=== PATIENT | female | born 1965 | race Caucasian/White ===

== ENCOUNTER 2022-01-25 22:33 | Emergency (ER) | payer MEDICAID ==
[~2022-01-25] VITALS: Ht 160 cm; Wt 97.5 kg
[2022-01-25 23:05] VITALS: BP 138/92
[2022-01-25 23:41] LABS: BASOPHILS # (AUTO) 0.1 K/uL (0.00-0.22); BASOPHILS % (AUTO) 0.5 % (0.0-2.0); EOSINOPHILS # (AUTO) 0.2 K/uL (0-0.4); HEMATOCRIT 40.2 % (36-48); HEMOGLOBIN 13.2 g/dL (12.0-16.0); LYMPHOCYTES # (AUTO) 3.1 K/uL (2.5-16.5); LYMPHOCYTES % (AUTO) 20.5 % (20.5-51.1); MEAN CORPUSCULAR HEMOGLOBIN 28 pg (27-31); MEAN CORPUSCULAR HGB CONC 33 g/dL (33-37); MEAN CORPUSCULAR VOLUME 85.6 fL (80-94); MONOCYTES # (AUTO) 0.8 K/uL (0.8-1.0); MONOCYTES % (AUTO) 5.4 % (1.7-9.3); NEUTROPHILS # (AUTO) 10.9 K/uL (1.8-7.7); NEUTROPHILS % (AUTO) 72.6 % (42.2-75.2); PLATELET COUNT (AUTO) 317 K/uL (140-450); RED BLOOD CELL COUNT(AUTO) 4.69 MIL/uL (4.20-5.40); RED CELL DISTRIBUTION WIDTH 14.3 % (11.6-13.7)
[2022-01-26 00:03] LABS: ALBUMIN 3.9 g/dL (3.4-5.0); ANION GAP 12.4 (8-16); CARBON DIOXIDE 29.1 mmol/L (21-32); CREATININE 0.7 mg/dL (0.6-1.3); POTASSIUM 4.5 mmol/L (3.5-5.1); TOTAL BILIRUBIN 0.4 mg/dL (0.0-1.0)
--- NOTE | 2022-01-26 01:20 | NUR ---
PT TAKEN TO BED 8
--- NOTE | 2022-01-26 02:00 | NUR ---
Patient being evaluated by physician at bedside.
--- NOTE | 2022-01-26 02:00 | NUR ---
Female Care Manager Cna accompanied female patient for Rectal Exam.
--- NOTE | 2022-01-26 02:15 | NUR ---
56/F BIB SELF C/C RECTAL BLEEDING X1DAY. PRESSURE PAIN IS 7/10. PATIENT HAS HX OF HEMORRHOIDS. PATIENT IS HAVING DIFFICULTY SITTING AND DEFECATING DUE TO PAIN. PATIENT IS AAOX4 AND AMBULATORY. PMHX DM, HTN, HEMORRHOIDS NKA
[2022-01-26] MEDS ORDERED: IBUP-2213 PO (02:50)
[2022-01-26 03:04] VITALS: BP 133/90
--- NOTE | 2022-01-26 03:05 | NUR ---
The patient's care was reviewed and supervised by Magalys Resendiz RN.
== END 2022-01-26 03:04 | disposition home or self-care (01) ==
LOC: MED 22:33
DX: K64.4 Residual hemorrhoidal skin tags (principal); K92.1 Melena
CPT/HCPCS: 36415; 80053; 85025; 86886; 86900; 86901; 99283